=== PATIENT | male | born 1990 | race Caucasian/White ===

== ENCOUNTER 2018-09-11 03:45 | Emergency (ER) | payer MEDICAID ==
[~2018-09-11] VITALS: Ht 167.6 cm; Wt 48.0 kg
[2018-09-11 04:26] VITALS: BP 156/99
== END 2018-09-11 08:28 | disposition left against medical advice (07) ==
LOC: ER 03:45
DX: Z53.21 Procedure and treatment not carried out due to patient leaving prior to being seen by health care provider (principal)